=== PATIENT | female | born 1980 | race Caucasian/White ===

== ENCOUNTER 2018-08-20 21:25 | Emergency (ER) | payer OTHER ==
[~2018-08-20] VITALS: Ht 170.2 cm; Wt 108.9 kg
[2018-08-20 21:32] VITALS: BP 142/89
--- NOTE | 2018-08-20 21:37 | NUR ---
PT AMBULATED TO BED 9 WITH VSS.
--- NOTE | 2018-08-20 21:49 | NUR ---
PT PRESENTS TO ED WITH C/O L BREAST PAIN AND SWELLING WORSENING OVER 5 DAYS. PT DENIES INJURY OR TRAUMA TO AREA. PT REPORTS PAIN UPON MOVEMENT. PT PLACED INTO BED, PENDING MD VALENTE.
--- NOTE | 2018-08-20 22:58 | NUR ---
Dr. Mijares evaluating patient at bedside.
[2018-08-20] MEDS ORDERED: KETOROLAC 60 MG/2 ML VIAL IM ONE (23:05)
--- NOTE | 2018-08-20 23:32 | NUR ---
ULTRASOUND AT BEDSIDE.
--- NOTE | 2018-08-21 00:30 | NUR ---
Patient appears to be resting in bed with at this time. Vital Signs within normal limits. Respirations even and unlabored.
[2018-08-21 00:45] VITALS: BP 138/84
== END 2018-08-21 00:46 | disposition home or self-care (01) ==
LOC: MED 21:25
DX: N64.4 Mastodynia (principal); J45.909 Unspecified asthma, uncomplicated
CPT/HCPCS: 76641; 96372; 99284; J1885; Q0092

== ENCOUNTER 2018-11-18 15:31 | Emergency (ER) | payer OTHER ==
[~2018-11-18] VITALS: Ht 177.8 cm; Wt 120.2 kg
[2018-11-18 15:54] VITALS: BP 124/79
--- NOTE | 2018-11-18 16:00 | NUR ---
BIB DAUGHTER. AAO X4 C/O LEFT ANKLE PAIN S/P MECHANICAL FALL, + SWELLING, + BRUISING , - DEFORMITY, SKIN TEAR AND RIGHT KNEE PAIN OF 7/10, BLEEDING CONTROLLED. +MOVEMENT, + SENSATION, CAP REFILL <3 SECS TO SWETA LEGS, FEET AND TOES. PT STATES THAT SHE TRIPPED ON THE PARKING LOT. PT DENIES HITTING HER HEAD. SWETA EQUAL STRENGTH TO LOWER EXTREMITIES. HOB UP. BED SIDE RAILS UP X1. ON LOW BED POSITION, LOCKED. ER MADE AWARE OF PT STATUS.
--- NOTE | 2018-11-18 17:23 | NUR ---
DR SANDOVAL AT BEDSIDE FOR PT EVALUATION
[2018-11-18] MEDS ORDERED: KETOROLAC 60 MG/2 ML VIAL IM ONE (17:25)
[2018-11-18] MEDS ORDERED: BACITRACIN OINT 500 UNITS/GM PKT TP ONE (17:30)
--- NOTE | 2018-11-18 17:40 | NUR ---
ELDA WRAPPED RT. KNEE AND LEFT ANKLE. PATIENT GIVEN CRUTCHES AND GIVEN DEMONSTRATION, PT RETURNED DEMONSTRATION, NO BARRIERS TO LEARNING. [facility] ASSESSED AND WNL.
[2018-11-18 17:53] VITALS: BP 139/73
--- NOTE | 2018-11-18 17:53 | NUR ---
Patient discharged with v/s stable. Written and verbal after care instructions given and explained. Patient alert, oriented and verbalized understanding of instructions. Ambulatory with steady gait. All questions addressed prior to discharge. ID band removed. Patient advised to follow up with PMD. Rx of [place] 5 mg - 325 mg, Motrin given. Patient educated on indication of medication including possible reaction and side effects. Opportunity to ask questions provided and answered.
== END 2018-11-18 17:50 | disposition home or self-care (01) ==
LOC: MED 15:31
DX: S93.402A Sprain of unspecified ligament of left ankle, initial encounter (principal); S80.01XA Contusion of right knee, initial encounter; J45.909 Unspecified asthma, uncomplicated; G43.909 Migraine, unspecified, not intractable, without status migrainosus; Z90.49 Acquired absence of other specified parts of digestive tract; Z90.710 Acquired absence of both cervix and uterus; W18.39XA Other fall on same level, initial encounter; Y93.89 Activity, other specified; Y92.89 Other specified places as the place of occurrence of the external cause; Y99.8 Other external cause status
CPT/HCPCS: 73564; 73610; 96372; 99283; J1885; Q0092

== ENCOUNTER 2019-02-09 13:54 | Emergency (ER) | payer OTHER ==
[~2019-02-09] VITALS: Ht 170.2 cm; Wt 111.6 kg
[2019-02-09 13:58] VITALS: BP 130/89
--- NOTE | 2019-02-09 14:03 | NUR ---
PATIENT BIB W/C TO ER BED 2.
[2019-02-09 14:10] VITALS: BP 130/89
--- NOTE | 2019-02-09 14:10 | NUR ---
PT IS A 38 Y/O FEMALE WHO PRESENTS TO THE ED C/O R ANKLE PAIN. PT STATES THAT SHE TRIPPED OVER A CURB AND HIT HER R ANKLE. PT REPORTS 10/10 ACHING R ANKLE PAIN THAT DOES NOT RADIATE. NO OBVIOUS TRAUMA/DEFORMITY. CMS INTACT. PT AWAKE AND ALERT, RR EVEN/UNLABORED. PT REPOSITIONED FOR COMFORT, BED IN LOWEST POSITION. ER MD DR. DUPONT NOTIFIED. WILL CONTINUE TO MONITOR. NKA HX: ASTHMA
--- NOTE | 2019-02-09 14:11 | NUR ---
XRAY AT BEDSIDE.
--- NOTE | 2019-02-09 14:15 | NUR ---
DR. DUPONT EVALUATING PATIENT.
[2019-02-09] MEDS ORDERED: IBUPROFEN 600 MG TAB PO ONE (14:30)
--- NOTE | 2019-02-09 14:35 | NUR ---
PATIENT RESTING AT THIS TIME. NO SIGNS OF DISTRESS.
--- NOTE | 2019-02-09 15:15 | NUR ---
PATIENT D/C BY DR. DUPONT. GIVEN RX OF NAPROSYN 500MG. ID BAND REMOVED. ALL QUESTIONS ADDRESSED AND ANSWERED. PATIENT AMBULATED WITH CRUTCHES TO CAR.
== END 2019-02-09 15:13 | disposition home or self-care (01) ==
LOC: MED 13:54
DX: S93.401A Sprain of unspecified ligament of right ankle, initial encounter (principal); J45.909 Unspecified asthma, uncomplicated; Z90.49 Acquired absence of other specified parts of digestive tract; Z90.710 Acquired absence of both cervix and uterus; Z98.890 Other specified postprocedural states; W01.0XXA Fall on same level from slipping, tripping and stumbling without subsequent striking against object, initial encounter; Y93.01 Activity, walking, marching and hiking; Y92.89 Other specified places as the place of occurrence of the external cause; Y99.8 Other external cause status
CPT/HCPCS: 73610; 99283; Q0092

== ENCOUNTER 2020-03-26 19:10 | Emergency (ER) | payer OTHER ==
[~2020-03-26] VITALS: Ht 165.1 cm; Wt 83.9 kg
[2020-03-26 19:46] VITALS: BP 142/76
--- NOTE | 2020-03-26 19:53 | NUR ---
URINE DIP AND PREG DONE
[2020-03-26] MEDS ORDERED: KETOROLAC 60 MG/2 ML VIAL IM ONE (20:05)
[2020-03-26] MEDS ORDERED: ONDANSETRON 4 MG ODT PO ONE (20:05)
--- NOTE | 2020-03-26 20:31 | NUR ---
PT STATES SHE STARTED HAVING R FLANK PAIN AND PELVIC PAIN X 1 DAY ALONG WITH BURNING WITH URINATION AND FREQUENCY. PT STATES SHE WAS HAVING SUCH SEVERE PAIN SHE PASSED OUT PRIOR TO CALLING 911. DENIES VOMITING BUT HAS BEEN HAVING NAUSEA AND DIARRHEA FOR 1 DAY. AFEBRILE. BED IN LOWEST POSITION AND SIDE RAIL UP X 1. NKA MED HX - ASTHMA, MIGRAINE
[2020-03-26] MEDS ORDERED: MORPHINE SULFATE 4 MG/ML SYR IM ONE (21:05)
--- NOTE | 2020-03-26 21:06 | NUR ---
PT STILL HAVING PAIN TO R FLANL 03/29, FEELS LIKE IT IS HAVING SPASMS.
[2020-03-26 21:53] VITALS: BP 142/76
--- NOTE | 2020-03-26 21:54 | NUR ---
Patient discharged with v/s stable. Written and verbal after care instructions given and explained. Patient alert, oriented and verbalized understanding of instructions. Ambulatory with steady gait. All questions addressed prior to discharge. ID band removed. Patient advised to follow up with PMD. Rx of NORCO AND FLOMAX given. Patient educated on indication of medication including possible reaction and side effects. Opportunity to ask questions provided and answered.
== END 2020-03-26 21:53 | disposition home or self-care (01) ==
LOC: MED 19:10
DX: N20.0 Calculus of kidney (principal); J45.909 Unspecified asthma, uncomplicated; Z90.49 Acquired absence of other specified parts of digestive tract
CPT/HCPCS: 74176; 81002; 81025; 96372; 99284; J1885; J2270; Q0162

== ENCOUNTER 2022-01-25 13:27 | Emergency (ER) | payer OTHER ==
[~2022-01-25] VITALS: Ht 172.7 cm; Wt 114.3 kg
[2022-01-25 13:30] VITALS: BP 171/116
--- NOTE | 2022-01-25 13:39 | NUR ---
PT AMB TO BED 12.
[2022-01-25] MEDS ORDERED: KETOROLAC 60 MG/2 ML VIAL IM ONE (13:45)
--- NOTE | 2022-01-25 14:01 | NUR ---
IM PAIN MEDS GIVEN-NADR AT THIS TIME
--- NOTE | 2022-01-25 14:17 | NUR ---
41 Y/O FEMALE C/O LEFT HIP PAIN S/P FALL X 2 WEEKS. PT TOOK TRAMADOL, TYLENOL 2 HOURS AGO. BP 171/116 AT THIS TIME. DENIES FEVER/CHILLS. DENIES N/V/D. PMH: ASTHMA, HYSTERECTOMY, SCIATICA NKA
--- NOTE | 2022-01-25 14:29 | NUR ---
DR. BOSTON AT PT BEDSIDE FOR FURTHER EVALUATION.
[2022-01-25] MEDS ORDERED: MORPHINE SULFATE 4 MG/ML SYR IVP ONE (14:35)
[2022-01-25] MEDS ORDERED: DEXAMETHASONE 4 MG/ML VIAL IM ONE (14:35)
[2022-01-25] MEDS ORDERED: MORPHINE SULFATE 4 MG/ML SYR IM ONE (14:50)
--- NOTE | 2022-01-25 15:20 | NUR ---
DR. BOSTON AT PT BEDSIDE FOR RE-EVALUATION.
[2022-01-25 15:27] VITALS: BP 158/94
--- NOTE | 2022-01-25 15:28 | NUR ---
Patient discharged with v/s stable. Written and verbal after care instructions given FOR CHRONIC BACK PAIN and explained. Patient verbalized understanding. Ambulatory with steady gait. All questions addressed prior to discharge. Advised to follow up with PMD.
== END 2022-01-25 15:27 | disposition home or self-care (01) ==
LOC: MED 13:27
DX: M54.50 Low back pain, unspecified (principal); J45.909 Unspecified asthma, uncomplicated; I10 Essential (primary) hypertension
CPT/HCPCS: 81002; 81025; 96372; 99284; J1100; J1885; J2270

== ENCOUNTER 2023-01-31 13:32 | Emergency (ER) | payer OTHER ==
[~2023-01-31] VITALS: Ht 172.7 cm; Wt 108.9 kg
[2023-01-31 13:33] VITALS: BP 141/98; PULSE 95; RESP 16; TEMP 98.2; O2SAT 99
--- NOTE | 2023-01-31 13:42 | NUR ---
pt wound to L eyebrow irrigated.
[2023-01-31] MEDS ORDERED: LIDOCAINE 1% 500 MG/ 50 ML VIAL INJ ONE (14:15)
[2023-01-31] MEDS ORDERED: LIDOCAINE MPF 1% 5 ML ONE (14:16)
--- NOTE | 2023-01-31 14:32 | NUR ---
Patient discharged with v/s stable. Written and verbal after care instructions given and explained. Patient verbalized understanding. Ambulatory with steady gait. All questions addressed prior to discharge. Advised to follow up with PMD.
== END 2023-01-31 14:32 | disposition home or self-care (01) ==
LOC: MED 13:32
DX: S01.112A Laceration without foreign body of left eyelid and periocular area, initial encounter (principal); S61.512A Laceration without foreign body of left wrist, initial encounter; S50.812A Abrasion of left forearm, initial encounter; J45.909 Unspecified asthma, uncomplicated; I10 Essential (primary) hypertension; Z90.49 Acquired absence of other specified parts of digestive tract; Z98.890 Other specified postprocedural states; Z90.710 Acquired absence of both cervix and uterus; W25.XXXA Contact with sharp glass, initial encounter; Y93.89 Activity, other specified; Y92.89 Other specified places as the place of occurrence of the external cause; Y99.8 Other external cause status
CPT/HCPCS: 12011; 90471; 90715; 99283; J2001